=== PATIENT | male | born 1970 | race Caucasian/White ===

== ENCOUNTER 2017-10-12 06:33 | Emergency (ER) | payer SELFPAY ==
[~2017-10-12] VITALS: Ht 172.7 cm; Wt 98.2 kg
[2017-10-12] MEDS ORDERED: ULTRAM50 MG PO (07:25)
[2017-10-12 07:49] VITALS: BP 152/98
== END 2017-10-12 07:49 | disposition home or self-care (01) ==
LOC: EME 06:33
DX: M25.511 Pain in right shoulder (principal); I10 Essential (primary) hypertension; Z87.828 Personal history of other (healed) physical injury and trauma; Z88.0 Allergy status to penicillin
CPT/HCPCS: 99281; 99284